=== PATIENT | male | born 2000 | race Hispanic/Latino ===

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

== ENCOUNTER 2020-08-06 12:13 | Emergency (ER) | payer SELFPAY ==
[~2020-08-06] VITALS: Ht 172.7 cm; Wt 78.0 kg
[~2020-08-06 12:13] MED LIST: MOTRIN800 MG PO
[2020-08-06 14:10] VITALS: BP 130/65
== END 2020-08-06 14:10 | disposition home or self-care (01) | DRG 556 ==
LOC: ED 12:13
DX: M25.572 Pain in left ankle and joints of left foot (principal); X50.0XXA Overexertion from strenuous movement or load, initial encounter; Y92.009 Unspecified place in unspecified non-institutional (private) residence as the place of occurrence of the external cause